=== PATIENT | male | born 1985 | race Caucasian/White ===

== ENCOUNTER 2016-10-21 13:43 | Emergency (ER) | payer OTHER ==
[~2016-10-21] VITALS: Ht 167.6 cm; Wt 65.0 kg
[~2016-10-21 13:43] MED LIST: DEXT10TA9 PO
[2016-10-21 13:46] VITALS: Ht 167.6 cm; Wt 65.0 kg
--- NOTE | 2016-10-21 14:22 | ERD ---
ER Documentation Chief Complaint Date/Time DATE: 10/21/16 TIME: 14:21 Chief Complaint STAPLE REMOVAL TO TOP OF HEAD HPI This is a 31-year-old male presenting to the emergency department for an encounter to remove the andreina on the top parietal scalp from a laceration that occurred a 11 days ago from going up stairs and hitting the top of his scalp against the wall. Patient states pain is minimal, only with touch, denies any fevers. Denies no neuro deficits ROS All systems reviewed and are negative except as per history of present illness. Medications Home Meds Reported Medications Amphet Ryu-Mxsnys-U-Amphet (Adderall) 10 Mg Tablet, 10 MG PO DAILY, TAB 10/28/14 Allergies Allergies: Coded Allergies: No Known Allergy (Unverified , 10/25/14) PMhx/Soc Hx Alcohol Use: No Hx Substance Use: No Hx Tobacco Use: Yes Physical Exam Vitals Vital Signs Date Time Temp Pulse Resp B/P Pulse Ox O2 Delivery O2 Flow Rate FiO2 10/21/16 13:46 97.8 82 19 122/85 100 Physical Exam Const: [] Head: Atraumatic Eyes: Normal Conjunctiva ENT: Normal External Ears, Nose and Mouth. Neck: Full range of motion..~ No meningismus. Resp: Clear to auscultation bilaterally Cardio: Regular rate and rhythm, no murmurs Abd: Soft, non tender, non distended. Normal bowel sounds Skin: 6 andreina intact on the top parietal scalp Back: No midline or flank tenderness Ext: No cyanosis, or edema Neur: Awake and alert Psych: Normal Mood and Affect Procedures/MDM This is a 31-year-old male presenting to the emergency department for encounter to remove andreina on the top of his scalp from a laceration that occurred 11 days ago from hitting his head against the wall. There was no evidence of dehiscence, cellulitis. Patient continues to have no neuro deficits and appears well and speaking clearly. An alcohol swab was used to clean the area and I have removed the andreina without any complications. Patient is stable for discharge her home and discussed return to the ER for any worsening symptoms. He understood and agreed plan Departure Diagnosis: Primary Impression: Encounter for removal of andreina Condition: Stable Patient Instructions: Staple Removal, No Complication Referrals: NO PRIMARY,CARE PHYSICIAN (PCP) Additional Instructions: Return to this facility if you are not improving as expected. MOISES CARLSON PA-C October 21, 2016 14:22
== END 2016-10-21 14:18 | disposition home or self-care (01) ==
LOC: E/R 13:43
DX: Z48.02 Encounter for removal of sutures (principal)
CPT/HCPCS: 99281

== ENCOUNTER 2017-01-04 21:44 | Emergency (ER) | payer SELFPAY ==
[~2017-01-04] VITALS: Ht 167.6 cm; Wt 66.0 kg
[2017-01-04 21:48] VITALS: Ht 167.6 cm; Wt 66.0 kg
[2017-01-05] MEDS ORDERED: NAPR-260 PO (22:33)
== END 2017-01-05 02:12 | disposition left against medical advice (07) ==
LOC: FTE 21:44
DX: Z53.21 Procedure and treatment not carried out due to patient leaving prior to being seen by health care provider (principal)

== ENCOUNTER 2017-01-05 21:01 | Emergency (ER) | payer OTHER ==
[~2017-01-05] VITALS: Ht 167.6 cm; Wt 66.0 kg
[2017-01-05 21:09] VITALS: Ht 167.6 cm; Wt 66.0 kg
--- NOTE | 2017-01-05 22:29 | RADRPT ---
PROCEDURE: Xray right ribs. The. CLINICAL INDICATION: Trauma. Right rib pain. TECHNIQUE: 5 views of the right ribs including frontal chest. COMPARISON: None available. FINDINGS: The osseous structures and surrounding soft tissues of the right rib cage are intact. No acute frac ture is seen. No radiopaque foreign body is identified. The lungs are clear. The heart size is normal. There is no pleural effusion or pneumothorax. IMPRESSION: 1. Unremarkable right ribs x-ray series. 2. Normal frontal chest radiograph. RPTAT: QQ .Zachary Rosas MD, Date Time Electronically viewed and signed by .Zachary Rosas MD, on 01/05/2017 22:29 .R/
[2017-01-05] MEDS ORDERED: NAPR-260 PO (22:33)
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
== END 2017-01-05 22:43 | disposition home or self-care (01) ==
LOC: FTE 21:01
DX: S29.9XXA Unspecified injury of thorax, initial encounter (principal); F17.210 Nicotine dependence, cigarettes, uncomplicated; W22.8XXA Striking against or struck by other objects, initial encounter; Y92.9 Unspecified place or not applicable
CPT/HCPCS: 71100; Z7502

== ENCOUNTER 2017-01-07 06:24 | Emergency (ER) | payer OTHER ==
[~2017-01-07] VITALS: Ht 167.6 cm; Wt 64.5 kg
[~2017-01-07 06:24] MED LIST changes: +NAPR-260 PO
[2017-01-07 06:26] VITALS: Ht 167.6 cm; Wt 64.5 kg
[2017-01-07] MEDS ORDERED: KETOROLAC 30 MG INJ IM STA (06:59)
[2017-01-07] MEDS ORDERED: HYDR-906 PO (07:04)
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
== END 2017-01-07 07:15 | disposition home or self-care (01) ==
LOC: FTE 06:24
DX: S29.9XXA Unspecified injury of thorax, initial encounter (principal); F17.210 Nicotine dependence, cigarettes, uncomplicated; W18.39XA Other fall on same level, initial encounter; Y92.9 Unspecified place or not applicable
CPT/HCPCS: 96372; J1885; Z7502

== ENCOUNTER 2017-01-28 15:20 | Emergency (ER) | payer OTHER ==
[~2017-01-28] VITALS: Ht 162.6 cm; Wt 64.0 kg
[~2017-01-28 15:20] MED LIST changes: +HYDR-906 PO
[2017-01-28 15:22] VITALS: Ht 162.6 cm; Wt 64.0 kg
--- NOTE | 2017-01-28 16:07 | ERA ---
ER Documentation Chief Complaint Date/Time DATE: 01/28/17 TIME: 16:03 Chief Complaint wants to be checked for std HPI 31-year-old male presenting with a chief complaint of redness on the tip of his penis. Patient had unprotected sex in which the condom broke 3 nights ago. Patient was checked for STDs yesterday by PCP with urine and blood tests. Patient denies fever, chills, dysuria, pain at the area, pruritus, discharge,. Patient has no other complaints and describes no other associated manifestations. Nursing notes have been reviewed and are consistent with history given. ROS All systems reviewed and are negative except as per history of present illness. Medications Home Meds Active Scripts Hydrocodone/Acetaminophen ([place] 5-325 Tablet) 1 Each Tablet, 1 TAB PO Q6H Y for PAIN, #7 TAB Prov:POOL IVAN PA-C 01/07/17 Naproxen* (Naprosyn*) 500 Mg Tablet, 500 MG PO BID Y for PAIN AND/OR INFLAMMATION, #30 TAB Prov:HUNTER DAVIS PA-C 01/05/17 Reported Medications Amphet Hrr-Qvrxst-O-Amphet (Adderall) 10 Mg Tablet, 10 MG PO DAILY, TAB 10/28/14 Allergies Allergies: Uncoded Allergies: PENICILLIN (Allergy, Unknown, 01/07/17) PMhx/Soc History of Surgery: No Anesthesia Reaction: No Hx Neurological Disorder: No Hx Respiratory Disorders: No Hx Cardiac Disorders: No Hx Psychiatric Problems: No Hx Miscellaneous Medical Probl: No Hx Alcohol Use: No Hx Substance Use: No Hx Tobacco Use: Yes Smoking Status: Current every day smoker Physical Exam Vitals Vital Signs Date Time Temp Pulse Resp B/P Pulse Ox O2 Delivery O2 Flow Rate FiO2 01/28/17 15:22 98.1 78 17 109/67 98 Physical Exam Const: Well-appearing 31-year-old male no acute distress Head: Atraumatic Eyes: Normal Conjunctiva ENT: Normal External Ears, Nose and Mouth. Neck: Full range of motion..~ No meningismus. Resp: Clear to auscultation bilaterally Cardio: Regular rate and rhythm, no murmurs Abd: Soft, non tender, non distended. Normal bowel sounds Skin: 3 mm red raised and smooth nodule on the superior right aspect of the glans penis. 4 mm lesion most consistent with warts under pubic hair area on the midline 8-12 cm superior to the shaft of the penis. Back: No midline or flank tenderness Ext: No cyanosis, or edema Neur: Awake and alert Psych: Normal Mood and Affect Procedures/MDM Patient presents with penis redness. Physical exam was unremarkable for signs of STD. Most likely cause is inflammation secondary to trauma from rough intercourse. At this time of little suspicion for STDs, UTIs, or other infectious etiologies. Patient also presents with lesion most consistent with warts. I have spoke with the patient regarding their condition and future management. They have verbally responded that they understand their status and treatment plan. The patients vitals are stable, and their current condition is appropriate for discharge. The patient will be given discharge instructions with return precautions. Departure Diagnosis: Primary Impression: Disorder of male genital organs Additional Impression: Injury of male external genital organs Qualified Code: S39.94XA - Injury of male external genital organs, initial encounter Condition: Stable Patient Instructions: Understanding Human Papillomavirus (HPV) and Genital Warts Referrals: LISA JIMENEZ (PCP) Additional Instructions: Follow up with your PCP within the next 1-3 days for a more thorough evaluation and a possible referral to a specialist. Return the the emergency department immediately if symptoms worsen or change. If you have any questions regarding medications, ask your pharmacist or us before you leave. If any adverse reactions occur while taking your medications, discontinue the treatment and return to the emergency department immediately. Take your medications as directed, and complete the entire course of treatment. POOL IVAN PA-C Jan 28, 2017 16:04
== END 2017-01-28 16:10 | disposition home or self-care (01) ==
LOC: FTE 15:20
DX: N48.89 Other specified disorders of penis (principal); S39.94XA Unspecified injury of external genitals, initial encounter; F17.210 Nicotine dependence, cigarettes, uncomplicated; X58.XXXA Exposure to other specified factors, initial encounter; Y92.9 Unspecified place or not applicable
CPT/HCPCS: 99282

== ENCOUNTER 2017-01-31 14:35 | Emergency (ER) | payer OTHER ==
[~2017-01-31] VITALS: Ht 152.4 cm; Wt 76.0 kg
[2017-01-31 14:50] VITALS: Ht 152.4 cm; Wt 76.0 kg
[2017-01-31 16:03] LABS: URINE BLOOD (Dip) POC Trace-intact (NEGATIVE)
--- NOTE | 2017-02-20 15:48 | ERD ---
ER Documentation Chief Complaint Date/Time DATE: 02/20/17 TIME: 15:40 Chief Complaint RASH ON GROIN, HERE YESTERDAY WITH SAME HPI Patient is a 32-year-old male with no past medical history who presents to the ED with rash on his penis. States that there is white discharge and erythema. Denies dysuria. Denies history of STD. Denies abdominal pain, nausea, vomiting or diarrhea. States that he got a prescription for clotrimazole but did not use it. No other complaints. ROS All systems reviewed and are negative except as per history of present illness. Medications Home Meds Active Scripts Hydrocodone/Acetaminophen ([place] 5-325 Tablet) 1 Each Tablet, 1 TAB PO Q6H Y for PAIN, #7 TAB Prov:POOL IVAN PA-C 01/07/17 Naproxen* (Naprosyn*) 500 Mg Tablet, 500 MG PO BID Y for PAIN AND/OR INFLAMMATION, #30 TAB Prov:HUNTER DAVIS PA-C 01/05/17 Reported Medications Amphet Zfg-Vayiva-D-Amphet (Adderall) 10 Mg Tablet, 10 MG PO DAILY, TAB 10/28/14 Allergies Allergies: Uncoded Allergies: PENICILLIN (Allergy, Unknown, 01/07/17) PMhx/Soc History of Surgery: No Anesthesia Reaction: No Hx Neurological Disorder: No Hx Respiratory Disorders: No Hx Cardiac Disorders: No Hx Psychiatric Problems: No Hx Miscellaneous Medical Probl: No Hx Alcohol Use: No Hx Substance Use: No Hx Tobacco Use: Yes (1PACK PER DAY) Smoking Status: Current every day smoker FmHx Family History: No coronary disease, No diabetes, No other Physical Exam Physical Exam GENERAL: Well-developed, well-nourished male. Appears in no acute distress. ENT: Moist mucous membranes. No uvula deviation. No kissing tonsils. No exudates. NECK: Supple. No lymphadenopathy or thyromegaly. No meningismus. negative kernig. negative brudinski. LUNG: Clear to auscultation bilaterally. No rhonchi, wheezing, rales or coarse breath sounds. HEART: Regular rate and rhythm. No murmurs, rubs or gallops. ABDOMEN: No scars, ecchymosis or rashes noted. Soft, nontender, and nondistended. Positive bowel sounds in all four quadrants. No rebound tenderness , no guarding. (-) McBurneys point tenderness. No CVA tenderness. : uncircumsized penis with erythema, white discharge on penis BACK: No midline tenderness. Extremities: Equal pulses bilaterally. No peripheral clubbing, cyanosis or edema. No unilateral leg swelling. NEUROLOGIC: Alert and oriented. Moving all four extremities. 5/5 strength in all extremities. Normal speech. Steady gait. SKIN: Normal color. Warm and dry. No rashes or lesions. Capillary refill < 2 seconds Results 24 hrs Laboratory Tests Test 01/31/17 16:00 01/31/17 16:09 Chlamydia trachomatis RNA (TMA) NOT DETECTED Chlamydia/GC Comment SEE NOTE Neisseria gonorrhoeae RNA (TMA) NOT DETECTED Bedside Urine pH (LAB) 7.0 Bedside Urine Protein (LAB) 1+ Bedside Urine Glucose (UA) Negative Bedside Urine Ketones (LAB) 1+ Bedside Urine Blood Trace-intact Bedside Urine Nitrite (LAB) Negative Bedside Urine Leukocyte Esterase (L Negative Procedures/MDM ER COURSE: I kept the patient and/or family informed of laboratory and diagnostic imaging results throughout the emergency room course. MEDICAL DECISION MAKING: This is a 32-year-old male who presents with rash on his penis. Vital signs were reviewed. Patient is afebrile. Patient is not hypoxic. fleet administrative assistant for exam. Likely balanitis. Urine within normal limits with no signs of infection. Low suspicion for pyelonephritis, UTI, nephrolithiasis, appendicitis, testicular torsion, incarcerated or strangulated hernia. DISCHARGE: At this time, patient is stable for discharge and outpatient management with no new complaints during the ER course. Patient was sent home with instructions to use clotrimazole as prescribed. Patient will be discharged home with instructions to recheck for new or worsening symptoms such as fever, nausea, weakness, LOC and to follow up with primary care in the next 1-2 days. Patient was advised to return to the ER for any new or worsening symptoms. Plan was discussed and patient and/or family understands and agrees. Home instructions were given. Departure Diagnosis: Primary Impression: Balanitis Condition: Stable Patient Instructions: Balanitis Additional Instructions: USE CLOTRIMAZOLE PRESCRIPTION FOR 10 DAYS Call your primary care doctor TOMORROW for an appointment during the next 1-2 days.See the doctor sooner or return here if your condition worsens before your appointment time. BINTA SRINIVASAN PA-C Feb 20, 2017 15:48
== END 2017-01-31 16:14 | disposition home or self-care (01) ==
LOC: FTE 14:35
DX: N48.1 Balanitis (principal); F17.210 Nicotine dependence, cigarettes, uncomplicated
CPT/HCPCS: 81003; 87591; Z7502; 99282

== ENCOUNTER 2018-02-11 23:52 | Emergency (ER) | END 2018-02-12 04:50 | disposition left against medical advice (07) ==